=== PATIENT | female | born 1945 | race Caucasian/White ===

== ENCOUNTER 2017-04-29 08:38 | Emergency (ER) | payer OTHER, MEDICARE ==
[~2017-04-29] VITALS: Ht 149.9 cm; Wt 49.8 kg
[2017-04-29 09:05] LABS: HEMATOCRIT 40.8 % (36.0-46.0); HEMOGLOBIN 13.8 G/DL (11.9-15.5); MCH 29.6 PG (29.0-34.0); MCHC 33.8 G/DL (30.0-36.0); MCV 87.6 FL (83-99); PLATELET COUNT 215 K/uL (156-360); RBC DIS.WIDTH-CV 13.9 % (11.8-14.6); RBC DIS.WIDTH-SD 43.8 % (39-53); RED BLOOD COUNT 4.66 M/uL (3.80-5.20); WHITE BLOOD COUNT 4.5 K/uL (4.1-10.2)
[2017-04-29 09:16] LABS: ALBUMIN 4.1 g/dL (3.2-4.8)
[2017-04-29 09:17] LABS: CHLORIDE 109 mEq/L (99-109); POTASSIUM 3.4 mEq/L (3.7-5.4); SODIUM 146 mEq/L (136-147)
[2017-04-29 09:19] LABS: GLUCOSE 104 mg/dL (70-99); TOTAL PROTEIN 6.3 g/dL (6.4-8.3)
[2017-04-29 09:21] LABS: TOTAL BILIRUBIN 0.5 mg/dL (0.0-1.0)
[2017-04-29 09:22] LABS: ALKALINE PHOSPHATASE 64 IU/L (3-129)
[2017-04-29 09:23] LABS: GFR ESTIMATE (CALCULATED) 58 mL/min/
[2017-04-29 09:24] LABS: AST (GOT) 22 IU/L (2-34); UREA NITROGEN (BUN) 6 mg/dL (9-23)
[2017-04-29 09:25] LABS: ALT (GPT) 21 IU/L (3-49)
[2017-04-29] MEDS ORDERED: ZUPLENZ4 MG PO (09:52)
[2017-04-29] MEDS ORDERED: PANTOPRAZOLE SO40 MG PO (09:52)
[2017-04-29] MEDS ORDERED: COZAAR100 MG PO (09:53)
[2017-04-29] MEDS ORDERED: HYZAAR 100-21 TABLET PO (09:54)
[2017-04-29] MEDS ORDERED: ATIVAN0.5 MG PO (09:54)
[2017-04-29] MEDS ORDERED: K-DUR20 MEQ PO (09:54)
[2017-04-29] MEDS ORDERED: BUPROPION XL300 MG PO (09:55)
[2017-04-29 10:45] LABS: APPEARANCE CLEAR ((CLEAR)); BILIRUBIN NEGATIVE; BLOOD NEGATIVE; COLOR YELLOW ((YELLOW)); GLUCOSE (STRIP) NEGATIVE; KETONES NEGATIVE; LEUKOCYTES TRACE; NITRITE NEGATIVE; PROTEIN (STRIP) NEGATIVE; UROBILINOGEN 0.2 MG/DL (0.2-1.0)
[2017-04-29 10:51] LABS: BACTERIA RARE /HPF; EPITHELIAL CELLS RARE /HPF; MUCUS TRACE /LPF; RED BLOOD CELLS 0-5 /HPF (0-5); UCUL ADDED? NO; WHITE BLOOD CELLS 0-5 /HPF (0-5)
[2017-04-29] MEDS ORDERED: TYLENOL WITH C1 EACH PO (11:45)
[2017-04-29 11:58] VITALS: BP 164/75
== END 2017-04-29 11:59 | disposition home or self-care (01) ==
LOC: EME 08:38
DX: R10.10 Upper abdominal pain, unspecified (principal); R11.2 Nausea with vomiting, unspecified; E78.5 Hyperlipidemia, unspecified; I10 Essential (primary) hypertension; F41.9 Anxiety disorder, unspecified
CPT/HCPCS: 80053; 81003; 85027; 99281; 99284; J7030

== ENCOUNTER 2017-05-07 10:25 | Emergency (ER) | payer OTHER, MEDICARE ==
[~2017-05-07] VITALS: Ht 149.9 cm; Wt 47.3 kg
[~2017-05-07 10:25] MED LIST: ATIVAN0.5 MG PO; BUPROPION XL300 MG PO; COZAAR100 MG PO; HYZAAR 100-21 TABLET PO; K-DUR20 MEQ PO; PANTOPRAZOLE SO40 MG PO; TYLENOL WITH C1 EACH PO; ZUPLENZ4 MG PO
[2017-05-07 12:01] LABS: BASOPHIL (%) 0.9 % (0-1); BASOPHIL COUNT 0.1 K/uL (0-0.1); EOSINOPHIL (%) 1.7 % (0-5); EOSINOPHIL COUNT 0.1 K/uL (0-0.3); HEMATOCRIT 40.7 % (36.0-46.0); HEMOGLOBIN 13.7 G/DL (11.9-15.5); IMMATURE GRANULOCYTE (%) 0.3 % (0.0-0.7); LYMPHOCYTE (%) 17.7 % (15-42); LYMPHOCYTE COUNT 1.2 K/uL (1.0-2.8); MCH 29.5 PG (29.0-34.0); MCHC 33.7 G/DL (30.0-36.0); MCV 87.5 FL (83-99); MONOCYTE (%) 8.6 % (3-12); MONOCYTE COUNT 0.6 K/uL (0-0.8); NEUTROPHIL (%) 70.8 % (45-76); NEUTROPHIL COUNT 4.9 K/uL (1.8-6.4); PLATELET COUNT 168 K/uL (156-360); RBC DIS.WIDTH-CV 14.2 % (11.8-14.6); RBC DIS.WIDTH-SD 45.1 % (39-53); RED BLOOD COUNT 4.65 M/uL (3.80-5.20); WHITE BLOOD COUNT 6.9 K/uL (4.1-10.2)
[2017-05-07 12:14] LABS: ALBUMIN 3.9 g/dL (3.2-4.8)
[2017-05-07 12:15] LABS: CHLORIDE 110 mEq/L (99-109); POTASSIUM 3.4 mEq/L (3.7-5.4); SODIUM 146 mEq/L (136-147)
[2017-05-07 12:17] LABS: GLUCOSE 107 mg/dL (70-99); TOTAL PROTEIN 5.8 g/dL (6.4-8.3)
[2017-05-07 12:19] LABS: TOTAL BILIRUBIN 0.5 mg/dL (0.0-1.0)
[2017-05-07 12:20] LABS: ALKALINE PHOSPHATASE 57 IU/L (3-129)
[2017-05-07 12:21] LABS: CREATININE 0.9 mg/dL (0.6-1.3); GFR ESTIMATE (CALCULATED) > 59 mL/min/; TROP-I INTERPRETATION NEGATIVE; TROPONIN-I 0.01 ng/mL (0.0-0.30)
[2017-05-07 12:22] LABS: AST (GOT) 19 IU/L (2-34); UREA NITROGEN (BUN) 10 mg/dL (9-23)
[2017-05-07 12:24] LABS: ALT (GPT) 17 IU/L (3-49)
[2017-05-07 13:14] LABS: APPEARANCE CLEAR ((CLEAR)); BILIRUBIN NEGATIVE; BLOOD NEGATIVE; COLOR YELLOW ((YELLOW)); GLUCOSE (STRIP) NEGATIVE; KETONES NEGATIVE; LEUKOCYTES MODERATE; NITRITE NEGATIVE; PROTEIN (STRIP) NEGATIVE; SPECIFIC GRAVITY 1.009 (1.000-1.030); UROBILINOGEN 0.2 MG/DL (0.2-1.0)
[2017-05-07 13:19] LABS: BACTERIA RARE /HPF; EPITHELIAL CELLS RARE /HPF; MUCUS 1+ /LPF; RED BLOOD CELLS 0-5 /HPF (0-5); UCUL ADDED? NO; WHITE BLOOD CELLS 0-5 /HPF (0-5)
[2017-05-07 14:10] VITALS: BP 179/99
[2017-05-07 15:00] LABS: DIRECT BILIRUBIN 0.2 mg/dL (0.0-0.3)
== END 2017-05-07 14:11 | disposition home or self-care (01) ==
LOC: EME 10:25
PROVIDERS: Emergency Medicine
DX: R53.1 Weakness (principal); R42 Dizziness and giddiness; R63.4 Abnormal weight loss; Z68.21 Body mass index [BMI] 21.0-21.9, adult; I10 Essential (primary) hypertension
CPT/HCPCS: 70450; 71046; 80053; 81003; 82248; 84484; 85025; 93005; 99281; 99285; J7030